=== PATIENT | female | born 1970 | race Two or more races ===

== ENCOUNTER 2024-05-29 00:39 | Emergency (ER) | payer MEDICAID, SELFPAY ==
[2024-05-29 00:41] VITALS: BMI 27.3
--- NOTE | 2024-05-29 00:53 | EKG_ITS ---
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
[2024-05-29 00:57] VITALS: BP 209/129; BP 210/130; PULSE 77; RESP 18; TEMP 36.9; O2SAT 97
--- NOTE | 2024-05-29 01:02 | PD.EDRME ---
Rapid Medical Screening Exam [facility] Arrival date/time: 05/29/24 00:39 54F with history of HTN and DM presents to ED with 1 day of elevated BP and N/V when she ran out of her meds yesterday (Losartan 100 mg QDAY). Chief Complaint: Nausea/Vomiting/Diarrhea Vital signs: Vital Signs Temperature 98.4 F 05/29/24 00:57 Pulse Rate 77 05/29/24 00:57 Respiratory Rate 18 05/29/24 00:57 Blood Pressure 209/129 H 05/29/24 00:57 Pulse Oximetry (%) 97 05/29/24 00:57 Oxygen Delivery Method Room Air 05/29/24 00:57
[2024-05-29 01:34] LABS: Basophils % (Auto) 1 % (0-2.5); Eosinophils # (Auto) 0.1 Thou/mm3 (0.0-0.5); Eosinophils % (Auto) 2 % (0-10); Hematocrit 38.3 % (36.0-46.0); Immature Granulocytes % (Auto) 0 % (0-0); Immature Granulocytes Auto 0.01 Thou/mm3 (0.00-0.00); Lymphocytes # (Auto) 2.7 Thou/mm3 (1.0-4.8); Lymphocytes % (Auto) 47 % (10-50); Mean Corpuscular HGB Conc 33.9 g/dl (31.0-37.0); Mean Corpuscular Hemoglobin 28.6 pg (25.0-35.0); Mean Corpuscular Volume 84 fL (80-100); Monocytes # (Auto) 0.6 Thou/mm3 (0.0-0.8); Monocytes % (Auto) 10 % (0-12); Neutrophils # (Auto) 2.3 Thou/mm3 (1.8-7.7); Neutrophils % (Auto) 40 % (37-80); Nucleated Red Blood Cell % 0 /100 WBC (0); Platelet Count 249 Thou/mm3 (140-440); RDW Standard Deviation 42.6 fL (36.4-46.3); Red Blood Count 4.54 Miln/mm3 (4.00-5.20); White Blood Count 5.8 Thou/mm3 (3.6-11.0)
--- NOTE | 2024-05-29 01:44 | EDNOTE_ITS ---
Nausea/Vomit./Diarrhea-RME/HPI General Chief complaint: Nausea/Vomiting/Diarrhea Stated complaint: HIGH BLOOD PRESSURE Time Seen by Provider: 05/29/24 01:44 Arrival date/time: 05/29/24 00:39 RME / HPI RME / HPI Narrative: 05/29/24 00:39 54F with history of HTN and DM presents to ED with 1 day of elevated BP and N/V when she ran out of her meds yesterday (Losartan 100 mg QDAY). -------- Dr. Shipman?s Main ED Evaluation: 54yo male with a history of HTN, DM presents to the ED for a chief complaint of elevated blood pressure. Patient states she didn't take her losartan 100mg yesterday morning due to running out of it. She states she started having a headache and felt nauseated, so she came in for evaluation. Patient states she has an appointment with her PCP today to get her prescription refilled. She denies any other associated symptoms. No known allergies. Related Data Home Medications ?Medication ?Instructions ?Recorded ?Confirmed lisinopril 20 mg tablet 20 mg PO QDAY 06/12/1906/11 metformin 500 mg tablet,extended 500 mg PO QPM 0 06/12/19 release 24 hr Previous Rx's ?Medication ?Instructions ?Recorded clonidine HCl 0.1 mg tablet 0.1 mg PO BID #30 tabs losartan 100 mg tablet 100 mg PO QDAY #30 tabs 0308/18 Allergies Allergy/AdvReac Type Severity Reaction Status Date / Time No Known Allergies Allergy Verified 01/21/24 06:55 Review of Systems Review of Systems Systems Reviewed: All systems reviewed, normal except as documented Past Medical History Past Medical History CARDIAC: Positive Cardiac Disorders and Hypertension; Negative Congestive Heart Failure RESPIRATORY: Negative Chronic Obstructive Pulmonary Disease (COPD) GENITOURINARY: Negative Renal Disease ENDOCRINE: Negative Diabetes Mellitus Type 1 or Diabetes Mellitus Type 2 Social History SMOKING STATUS: Never smoker ED Exam Narrative Physical exam: GENERAL APPEARANCE: alert and oriented x 4, well-developed, well-nourished, no acute distress VITALS: All vitals were reviewed and the pulse ox is 95% on room air, which is normal according to my interpretation. HEENT: Normocephalic, atraumatic; pupils equal, round, reactive to light; EOMI; mucous membranes pink, moist; oropharynx clear NECK: Supple LUNGS: CTABL; no wheezes, no rales, no rhonchi HEART: Regular rate, regular rhythm; normal S1, S2; no murmurs ABDOMEN: non distended; normal BS; soft, no tenderness, no guarding, no rebound; no masses, no organomegaly, no hernia BACK: no CVA tenderness EXTREMITIES: atraumatic; no edema NEUROLOGIC: awake; alert and oriented x4; cranial nerves II-XII grossly intact; no focal sensory or motor deficits PSYCHIATRIC: appropriate mood and affect SKIN: warm, dry, normal color; no rashes Course Course Course Narrative: CXR is ordered for determining the etiology of high blood pressure. Quality Measures none Orders Category Date Time Status Counsel Q4H START 00 Care 05/29/24 02:00 Active Continuous Pulse Oximetry NOW Care 05/29/24 02:00 Completed EKG (ED ONLY) *Do not use* NOW Care 05/29/24 00:53 Completed EKG (ED Only) Stat Exams 05/29/24 00:53 Draft XR chest 1V portable Stat Exams 05/29/24 02:01 Taken CBC Stat Lab 05/29/24 01:29 Completed CMP [Comprehensive Metabolic Panel] Stat Lab 05/29/24 01:29 Completed Troponin I Stat Lab 05/29/24 01:29 Completed Losartan [Cozaar] Med 05/29/24 02:00 Discontinued 100 mg PO X1 ONE Reevaluation(s) Reevaluation #1: Patient states she feels significantly better, reporting her headache has resolved. Patient is stable to be discharged home. Time: 03:55 Vital Signs Vital signs: Vital Signs Temperature 98.4 F 05/29/24 00:57 Pulse Rate 77 05/29/24 00:57 Respiratory Rate 18 05/29/24 00:57 Blood Pressure 209/129 H 05/29/24 00:57 Pulse Oximetry (%) 97 05/29/24 00:57 Oxygen Delivery Method Room Air 05/29/24 00:57 Nausea/Vomiting/Diarrhea MDM Narrative MDM Narrative:: Scribe Attestation: 05/29/24 Hayley Malone am scribing for and in the presence of Dr. Shipman. Patient data External records reviewed:: [facility] previous records (Per chart review, patient was seen here on 01/21/24 for a headache.) Clinical information provided by:: patient Social determinants that could affect healthcare access:: none Patient has the following chronic illnesses:: HTN, DM How is presenting disease/condition affected by chronic disease/condition?: caused by Evaluation data The following diagnostics were reviewed and interpreted by me:: lab results, radiology exam(s) and EKG tracing(s) Lab and/or radiology exams considered but not ordered:: none Interpretation Summary: CBC is normal, Glucose is elevated at 204, Troponin is normal, according to my interpretation. CXR shows normal cardiac silhouette, normal sharp diaphragmatic edge, no infiltrates, normal costophrenic angles, according to my interpretation. EKG done at 0056, NSR, rate of 74, left axis deviation, no ectopy, LBBB, no STEMI, no sgarbossa's criteria, according to my interpretation. Medications / Prescriptions Medications / Prescriptions considered but not ordered:: none Medication administrations:: Medication Administration History Discontinued Medications Losartan Potassium (Losartan Potassium 25 Mg Tablet) 100 mg PO X1 ONE Stop: 05/29/24 02:01 Last Admin: 05/29/24 02:01 Dose: 100 mg Documented By: SF see above, if any Consultations Consultation(s) initiated? (list below): No Diagnosis Nausea Differential Diagnosis: other (hypertensive crisis, hypertensive emergency, hypertensive urgency) Most likely diagnosis given after review of the tests above:: see below Admission Indicated Admission indicated?: not indicated Admission Request Was there a request for admission?: No Disposition Plan Disposition Plan: Discharge Discharge Attestation Discharge Attestation: The patient and all family members were given an opportunity to ask questions and understood the discharge instructions. Discharge instructions specifically effects, indications for sooner follow up or return to the emergency department, and the expected course of current diagnosis. Patient condition: Stable Discharge Plan Plan Patient Disposition: HOME (Self Care) Prescriptions/Referrals Prescriptions/Med Rec: New losartan 100 mg tablet 100 mg PO QDAY Qty: 30 0RF No Action lisinopril 20 mg Tablet 20 mg PO QDAY metformin 500 mg Tablet Extended Release 24 Hr 500 mg PO QPM clonidine HCl 0.1 mg tablet 0.1 mg PO BID Qty: 30 0RF Referrals: Mark Alexis [Primary Care Provider] - In 1 week Problem List Clinical Impression: Medication dose missed, Essential hypertension, Headache due to hypertension Patient/Caregiver Discharge Instructions Education Materials: ED High Blood Pressure ... Additional Instructions: Please return to the emergency department if you have any worsening or any further medical problems. Otherwise you should follow-up with your primary care doctor within the next several days. Print Language: British Stand Alone Forms: [facility]ate Award Info., Patient Portal Info Letter
[2024-05-29 02:01] VITALS: BP 215/131; PULSE 74
[2024-05-29] MEDS: LOSARTAN POTASSIUM 25 MG TABLET 100 MG PO (02:01)
--- NOTE | 2024-05-29 02:01 | XR_ITS ---
Examination: AP chest single view TECHNIQUE: AP portable upright chest single view Exam date and time: October 29, 2024 0204 hours Comparison January 24, 2024 INDICATIONS: Coughing today. FINDINGS: Stable pulmonary nodule right midlung Normal heart size No interval pneumonia or pulmonary edema IMPRESSION: No interval pneumonia or pulmonary edema
[2024-05-29 02:03] LABS: Alanine Aminotransferase 20 U/L (10-49); Albumin, Serum 4.7 gm/dL (3.5-5.0); Albumin/Globulin Ratio 1.5 (1.2-2.2); Alkaline Phosphatase 118 U/L (46-116); Anion Gap 7 (7-16); Aspartate Amino Transferase 16 U/L (0-34); BUN/Creatinine Ratio 20 Ratio (12-20); Bilirubin,Total 0.5 mg/dL (0.3-1.2); Blood Urea Nitrogen 14 mg/dL (9-23); Calcium 9.8 mg/dL (8.3-10.6); Calcium (Corrected) 9.8 mg/dL (8.5-10.1); Carbon Dioxide 28.8 mMol/L (20.0-31.0); Chloride 106 mMol/L (98-107); Creatinine (Component) 0.7 mg/dL (0.6-1.3); Estimated Creatinine Clearance 74.7 mL/min (>60); Globulin 3.2 gm/dL (2.3-3.5); Glucose 204 mg/dL (74-106); Osmolality,Calculated 289 (275-295); Potassium 4.1 mMol/L (3.4-5.1); Sodium 142 mMol/L (136-145); Total Protein 7.9 gm/dL (5.7-8.2); Troponin I < 0.020 ng/mL (0.0-0.045); eGFR > 60 See Note
[2024-05-29 03:15] VITALS: BP 155/71; PULSE 69; PULSE 71; RESP 18; O2SAT 95
[2024-05-29 04:04] VITALS: BP 154/88; PULSE 70
[2024-05-29] MEDS: cloNIDine HCL 0.1 MG TABLET PO (04:04)
[2024-05-29 04:07] VITALS: BP 154/88; PULSE 67; RESP 18; O2SAT 95
== END 2024-05-29 04:08 | disposition home or self-care (01) ==
PROVIDERS: Physician Assistant; Emergency Provider Emergency Medicine; PCP Physician Assistant
DX: R51.9 Headache, unspecified (principal); I10 Essential (primary) hypertension; T46.5X6A Underdosing of other antihypertensive drugs, initial encounter; Z91.138 Patient's unintentional underdosing of medication regimen for other reason; E11.9 Type 2 diabetes mellitus without complications
CPT/HCPCS: 36415; 71045; 80053; 84484; 85025; 93005; 99283; A9270

== ENCOUNTER → 2024-09-06 | Outpatient (CLI) | payer MEDICAID, SELFPAY ==
--- NOTE | 2024-09-06 08:15 | XR_ITS ---
Examination: Screening digital mammography, bilateral Computer aided detection 3-D breast Tomosynthesis, bilateral Date and time of exam: September 06, 2024 0857 hours Compared to mammograms dating to October 22, 2021 Indication: Screening Technique: Nonmagnified MLO, CC views of the breasts to been obtained, reconstructed from 3-D Tomosynthesis images. R2 computer aided detection program utilized for evaluation of suspicious masses and/or abnormal calcifications. 3-D Tomosynthesis images obtained. Findings: Scattered areas of fibroglandular density. Breast biopsy marker upper outer left breast No interval suspicious masses Impression: BI-RADS category II: Benign Findings. Recommend 1 year follow-up mammogram.
== END | disposition home or self-care (01) ==
LOC: CDIM 08:51
PROVIDERS: Referring Provider Family Medicine; Visit Provider Family Medicine
DX: Z12.31 Encounter for screening mammogram for malignant neoplasm of breast (principal); R92.323 Mammographic fibroglandular density, bilateral breasts
CPT/HCPCS: 77063; 77067